=== PATIENT | female | born 1950 | race Caucasian/White ===

== ENCOUNTER → 2021-04-23 | Outpatient (CLI) | payer OTHER | END | disposition home or self-care (01) | LOC: LAB SHORT 13:28 → LAB 13:28 | DX: C54.1 Malignant neoplasm of endometrium (principal); N84.1 Polyp of cervix uteri | CPT/HCPCS: 88305; 88341; 88342 ==

== ENCOUNTER → 2023-04-17 | Outpatient (CLI) | payer OTHER | END | disposition home or self-care (01) | LOC: LAB 11:26 → LAB SHORT 11:26 | DX: R30.0 Dysuria (principal) | CPT/HCPCS: 87086 ==